=== PATIENT | male | born 1960 | race Two or more races ===

== ENCOUNTER → 2024-08-26 | Outpatient (CLI) | payer OTHER, MEDICAID, SELFPAY ==
--- NOTE | 2024-08-26 09:15 | XR_ITS ---
Examination: MRI lumbar spine, without intravenous contrast. MRI lumbar spine , with intravenous contrast. Exam date and time: August 26, 2024 0958 hours Comparison January 18, 2024 INDICATIONS: Chronic back pain radiating to both feet worse the last 8 months, abnormal enhancement T11-T12 epidural enhancement on MRI lumbar spine January 18, 2024 Technique: Multiple axial, sagittal and coronal images of the lumbar spine have been obtained with the Siemens high-resolution 1.5 Jaja MRI scanner. Images obtained included T2 weighted fat suppressed sagittal sections, TR 3500, TE 46, T2 weighted coronal fat suppressed images, TR 3050, TE 84, T2-weighted transverse fat suppressed images, TR 30-60, TE 63, proton density transverse images, TR 4720, TE 46, and T1 weighted coronal images, TR 560, TE 13. Axial, sagittal and coronal images are obtained post intravenous injection 13 cc gadolinium. Findings: Interval significant compressions T11 and T12 with increased signal indicating subacute nature of the compressions Depression superior endplate L5 again noted Postcontrast images demonstrate prominent enhancement again noted involving T11 and T12 with epidural more prominent enhancement measuring up to 6 mm although no impingement upon the conus medullaris IMPRESSION: Interval pathologic compressions T11, T12, likely secondary to osteomyelitis Recommend high-resolution CT thoracic spine without contrast follow-up Epidural enhancement is more prominent posterior to T11 and T12, consider epidural abscess
== END | disposition home or self-care (01) ==
DX: G95.20 Unspecified cord compression (principal)
CPT/HCPCS: 72158; A9579

== ENCOUNTER 2025-06-29 16:52 | Emergency (ER) | payer OTHER, MEDICAID, SELFPAY ==
[2025-06-29 16:56] VITALS: BP 134/93; PULSE 91; RESP 17; TEMP 36.6; O2SAT 95
[2025-06-29 16:59] VITALS: PULSE 92; O2SAT 98
--- NOTE | 2025-06-29 17:05 | XR_ITS ---
Examination: Shoulder, right, 3 views Technique: Shoulder AP internal rotation, AP external rotation, Y view shoulder, 3 views Exam date and time : June 29, 2025, 1720 hours INDICATIONS: Patient fell today with injury of the shoulder, shoulder pain. FINDINGS: Acute comminuted impacted fracture humeral neck No humeral head dislocation Severe osteopenia IMPRESSION: Acute comminuted impacted fracture humeral neck
--- NOTE | 2025-06-29 17:05 | XR_ITS ---
Examination: Hand, left 2 views Technique: AP lateral left hand 2 views Date and time: June 29, 2025, 1718 hours INDICATIONS: Patient fell today with injury of the hand, hand pain FINDINGS: Old appearing bone density at the base of the first metacarpal but clinical correlation advised No dislocation No foreign body IMPRESSION: Old appearing bone density at the base of the first metacarpal but clinical correlation advised
--- NOTE | 2025-06-29 17:06 | PD.EDRME ---
Rapid Medical Screening Exam RME Arrival date/time: 06/29/25 16:52 Chief Complaint: Fall Time Seen by Provider: 06/29/25 17:05 Vital signs: Vital Signs Temperature 97.9 F 06/29/25 16:56 Pulse Rate 91 06/29/25 16:56 Respiratory Rate 17 06/29/25 16:56 Blood Pressure 134/93 H 06/29/25 16:56 Pulse Oximetry (%) 95 06/29/25 16:56 Oxygen Delivery Method Room Air 06/29/25 16:56 Vital signs reviewed by provider: Yes RME Narrative: Patient is a 64-year-old male is in the emerged primary concerns for right shoulder and left hand pain after having going down. Patient states that he slipped walking on the stairs and landed on his right shoulder and left hand. Denies hitting his head, or loss of consciousness. Denies any head pain neck pain chest pain hip pain back pain or pain in his bilateral lower extremities. Denies any chest pain palpitations shortness of breath or feeling lightheaded prior to the fall. Exam: Tenderness palpation along the left hand, small abrasion, right shoulder tenderness palpation, neurovascularly intact Clinical Impression: Abrasion left hand, right shoulder pain
[2025-06-29 17:14] VITALS: BP 131/94; PULSE 95; RESP 13; TEMP 36.7; O2SAT 94
[2025-06-29 17:21] VITALS: BMI 25.7
--- NOTE | 2025-06-29 17:56 | PD.EDFALL ---
ED Fall Injury RME/HPI General Chief Complaint: Fall Stated Complaint: FALL Time Seen by Provider: 06/29/25 17:05 Arrival date/time: 06/29/25 16:52 64-year-old male patient came in for evaluation regarding ground-level fall. Patient sustained a fall, landing on his right shoulder, resulting to pain, described as dull ache, severity moderate. Patient also complained of left thumb pain and swelling, severity moderate. Patient denies any head injury denies any other complaints no medication was taken prior to ER visit. Patient is taking aspirin. RME / HPI RME / HPI Narrative: Patient is a 64-year-old male is in the emerged primary concerns for right shoulder and left hand pain after having going down. Patient states that he slipped walking on the stairs and landed on his right shoulder and left hand. Denies hitting his head, or loss of consciousness. Denies any head pain neck pain chest pain hip pain back pain or pain in his bilateral lower extremities. Denies any chest pain palpitations shortness of breath or feeling lightheaded prior to the fall. Exam: Tenderness palpation along the left hand, small abrasion, right shoulder tenderness palpation, neurovascularly intact Impression: Abrasion left hand, right shoulder pain Related Data Previous Rx's ?Medication ?Instructions ?Recorded pen needle, diabetic 29 gauge #100 ea 01/08/24 ascorbic acid (vitamin C) 250 mg 500 mg (2 x 250 mg) PO BID #0 tabs 01/26/24 tablet (Vitamin C) ceftriaxone 2 gram intravenous 2 g IV QDAY 01/26/24 solution cholecalciferol (vitamin D3) 25 2,000 iu PO QDAY #0 tabs 01/26/24 mcg (1,000 unit) tablet doxycycline hyclate 100 mg capsule 100 mg PO BID #60 caps 01/26/24 ferrous sulfate 325 mg (65 mg 325 mg PO QDAY #30 tabs 01/26/24 iron) tablet pantoprazole 40 mg tablet,delayed 40 mg PO QDAY #0 tabs 01/26/24 release pseudoephedrine-guaifenesin ER 60 1 tab PO BID #0 tabs 01/26/24 mg-600 mg tablet,extend release 12hr (Mucinex D) zinc sulfate 50 mg zinc (220 mg) 220 mg (4.4 x 50 mg zinc (220 mg)) 01/26/24 capsule PO QDAY #0 caps meloxicam 7.5 mg tablet 7.5 mg PO QDAY #7 tabs 02/15/24 acetaminophen 300 mg-codeine 30 mg 1 tab PO TID PRN pain #21 tabs 06/29/25 tablet Allergies Allergy/AdvReac Type Severity Reaction Status Date / Time Penicillins Allergy Unknown UNKNOWN Verified 12/22/23 06:24 Review of Systems Review of Systems Narrative Review of Systems: Review of system reviewed and within normal limits except mentioned in HPI ED Exam Narrative Physical exam: VITAL SIGNS: Reviewed. GENERAL APPEARANCE: Alert and interactive, follows commands, no acute distress, HEAD AND FACE: Non-traumatic. ENT: PERRL, pink conjunctivitis, eyelid no trauma, Mucous membrane moist. NECK: Supple, nontender, no nuchal rigidity. CHEST: No tenderness, no crepitus, no paradoxical movement, no retractions. LUNGS: Clear, well ventilated, symmetric, no rales, no wheezing, no ronchi, no stridor, good breath sounds bilaterally. HEART: Regular rate, regular rhythm, no murmur, no gallops. ABDOMEN: Soft, positive bowel sounds, nondistended, no guarding, nontender, no rebound, no masses, RECTAL: Deferred. GENITAL: Deferred. NEUROLOGICAL: Gross motor function intact sensory function intact, Appropriate for age. MUSCULOSKELETAL: low back nontender, full range of motion. EXTREMITIES: Right shoulder swelling, tenderness, with limitation range of motion. Left thumb swelling and tenderness SKIN: Color pink, dry, no rash, no lacerations, no abrasions, no contusions. LYMPHATICS: Deferred. Course Quality Measures none Orders Category Date Time Status sling [Splint / Immobilizer] STAT Care 06/29/25 17:55 Active XR hand LT 2V Stat Exams 06/29/25 17:05 Completed XR shoulder RT min 2V Stat Exams 06/29/25 17:05 Completed Morphine* Inj Med 06/29/25 17:56 Discontinued 4 mg IVP X1 ONE Ondansetron Odt [Zofran Odt] Med 06/29/25 17:55 Discontinued 4 mg PO X1 ONE Vital Signs Vital signs: Vital Signs Temperature 97.9 F 06/29/25 16:56 Pulse Rate 91 06/29/25 16:56 Respiratory Rate 17 06/29/25 16:56 Blood Pressure 134/93 H 06/29/25 16:56 Pulse Oximetry (%) 95 06/29/25 16:56 Oxygen Delivery Method Room Air 06/29/25 16:56 Fall MDM Narrative MDM Narrative:: 64-year-old male patient came in for evaluation regarding ground-level fall. Patient sustained a fall, landing on his right shoulder, resulting to pain, described as dull ache, severity moderate. Patient also complained of left thumb pain and swelling, severity moderate. Patient denies any head injury denies any other complaints no medication was taken prior to ER visit. Patient is taking aspirin. X-ray of the right shoulder showed minimally displaced fracture of the humeral head. X-ray of the left arm showed possible old fracture of the left arm patient left thumb was placed in a thumb spica splint, right arm on an arm sling. Distal neurovascular status intact. I ordered for CT scan of the head, however patient told me that he had no headache no loss of consciousness and head refused CT scan of the head. I advised him to return to emergency room if he develop headache or confusion. Patient agrees with the plan. Stable for discharge home told him to follow-up with PCP and for referral to orthopedic surgeon. Patient data External records reviewed:: None Clinical information provided by:: patient Social determinants that could affect healthcare access:: none Patient has the following chronic illnesses:: Diabetes mellitus How is presenting disease/condition affected by chronic disease/condition?: uneffected by Evaluation data The following diagnostics were reviewed and interpreted by me:: radiology exam(s) Lab and/or radiology exams considered but not ordered:: None Interpretation Summary: See above Medications / Prescriptions Medications or Prescriptions considered but not ordered:: None Medication administrations:: Medication Administration History Discontinued Medications Morphine Sulfate (Morphine Sulf Inj 4 Mg/Ml Vial) 4 mg IVP X1 ONE Stop: 06/29/25 17:57 Last Admin: 06/29/25 18:41 Dose: 4 mg Documented By: EF Ondansetron HCl (Ondansetron Odt 4 Mg Tabrap) 4 mg PO X1 ONE; Protocol Stop: 06/29/25 17:56 Last Admin: 06/29/25 18:41 Dose: 4 mg Documented By: EF Morphine and Zofran Consultations Consultation(s) initiated? (list below): No Diagnosis Fall Differential Diagnosis: other (Fall, arm pain, humeral head fracture, shoulder dislocation, thumb fracture) Most likely diagnosis given after review of the tests above:: Fall, humeral head fracture, thumb fracture Admission Indicated Admission indicated?: not indicated Admission Request Was there a request for admission?: No Disposition Plan Disposition Plan: Discharge Discharge Attestation Discharge Attestation: The patient and all family members were given an opportunity to ask questions and understood the discharge instructions. Discharge instructions specifically effects, indications for sooner follow up or return to the emergency department, and the expected course of current diagnosis. Patient condition: Stable Discharge Plan Plan Patient Disposition: HOME (Self Care) Discharge Disposition comment: stable Prescriptions/Referrals Prescriptions/Med Rec: New acetaminophen-codeine 300-30 mg tablet 1 tab PO TID PRN (Reason: pain) Qty: 21 0RF No Action ascorbic acid (vitamin C) [Vitamin C] 250 mg Tablet 500 mg PO BID Qty: 0 0RF pseudoephedrine-guaifenesin [Mucinex D] 60-600 mg Tablet Extended Release 12 Hr 1 tab PO BID Qty: 0 0RF pantoprazole 40 mg Tablet,Delayed Release (Dr/Ec) 40 mg PO QDAY Qty: 0 0RF zinc sulfate 50 mg zinc (220 mg) Capsule 220 mg PO QDAY Qty: 0 0RF cholecalciferol (vitamin D3) 25 mcg (1,000 unit) Tablet 2,000 iu PO QDAY Qty: 0 0RF ceftriaxone 2 gram recon soln 2 g IV QDAY Rx Instructions: To be given daily until 8-9-24 doxycycline hyclate 100 mg capsule 100 mg PO BID Qty: 60 0RF Rx Instructions: To be taken twice daily orally until 8-9-24 ferrous sulfate 325 mg (65 mg iron) tablet 325 mg PO QDAY Qty: 30 0RF meloxicam 7.5 mg tablet 7.5 mg PO QDAY Qty: 7 0RF (DME) pen needle, diabetic 29 gauge needle See Rx Instructions .Route Qty: 100 0RF Rx Instructions: As directed Referrals: No Primary/Family,Physician [Primary Care Provider] - In 1 week Problem List Clinical Impression: Fracture of head of right humerus, Fracture of thumb, Fall Patient/Caregiver Discharge Instructions Discharge Activity: activity as tolerated Education Materials: ED Fracture, Shoulder Additional Instructions: Thank you for the opportunity for serving you today. You are stable for discharged . You are advised to: Follow-up with your PCP in 1 to 2 days please ask your PCP to refer you to a orthopedic surgeon Return to ED for worsening of symptoms Increase oral fluids Take medication as prescribed Please wear your arm sling minimum 4 weeks Wear your thumb spica for the next 4 weeks Print Language: [place] Citizen Stand Alone Forms: Katarina Award Info., Patient Portal Info Letter PA/[employer] Supervising Physician PA/[employer] Supervising Physician: MD Regina
--- NOTE | 2025-06-29 18:21 | PC.NURSE ---
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
[2025-06-29] MEDS: ONDANSETRON ODT 4 MG TABRAP PO (18:41)
[2025-06-29] MEDS: MORPHINE SULF INJ 4 MG/ML VIAL IVP (18:41)
[2025-06-29 18:51] VITALS: BP 121/86; PULSE 93; RESP 16; TEMP 36.7; O2SAT 95
== END 2025-06-29 21:26 | disposition home or self-care (01) ==
PROVIDERS: Emergency Provider Emergency Medicine
DX: S42.291A Other displaced fracture of upper end of right humerus, initial encounter for closed fracture (principal); S62.509A Fracture of unspecified phalanx of unspecified thumb, initial encounter for closed fracture; E11.9 Type 2 diabetes mellitus without complications; W01.0XXA Fall on same level from slipping, tripping and stumbling without subsequent striking against object, initial encounter; Z79.82 Long term (current) use of aspirin
CPT/HCPCS: 73030; 73120; 99283; J2270; Q0162